=== PATIENT | male | born 1970 | race Caucasian/White ===

== ENCOUNTER 2016-12-25 05:21 | Day surgery (SDC) | payer MEDICAID ==
[2016-12-24 09:24] LABS: MCH 32.5 pg (26.0-34.0); MCHC 34.1 g/dL (31.0-37.0); MCV 95.2 fL (80.0-100.0); MEAN PLATELET VOLUME 10.4 fL (7.4-10.4); RBC 4.62 10x6/uL (4.20-6.10); RDW 12.4 % (11.5-14.5); WBC 12.7 10x3/uL (4.8-10.8)
[~2016-12-25] VITALS: Ht 185.4 cm; Wt 103.0 kg
[~2016-12-25 05:21] MED LIST: ASPIRIN325 MG PO; CLARITIN 10 MG10 MG PO; LISINOPRIL5 MG PO; MULTIPLE VITAMI1 TA1 PO
[2016-12-25 07:56] VITALS: BP 141/87; Ht 185.4 cm; Wt 103.0 kg
[2016-12-25] MEDS ORDERED: HYDROCODONE-APA1 TAB PO (11:02)
--- NOTE | 2016-12-25 14:49 | OP ---
PATIENT NAME: MIRACLE SCHMIDT MEDICAL RECORD: [id number] :70 LOCATION:D[facility] ADMISSION DATE: SURGEON: ZACH GOLD MD DATE OF OPERATION: 12/25/2016 SURGEON: Zach Gold MD. PREOPERATIVE DIAGNOSES: 1. Bilateral inguinal hernia without obstruction. 2. Alcohol dependence. 3. Nicotine dependence. 4. Chronic pancreatitis. 5. Hypertension. POSTOPERATIVE DIAGNOSES: 1. Bilateral inguinal hernia without obstruction. 2. Alcohol dependence. 3. Nicotine dependence. 4. Chronic pancreatitis. 5. Hypertension. PROCEDURE PERFORMED: Laparoscopic bilateral inguinal hernia repair. ANESTHESIA: General. COMPLICATIONS: None. SPECIMENS: None. Case was clean. ESTIMATED BLOOD LOSS: 20 cc. OPERATIVE COURSE: After consent was obtained, the patient was taken to the operating room and placed in the supine position on the operating table. Next, general anesthesia was given via endotracheal intubation after a timeout was taken to confirm the correct patient and procedure. The abdomen was then prepped and draped in typical sterile fashion. Ioban dressing was placed. Local anesthetic was injected just to the right of the umbilicus. Skin incision was made with a 15-blade scalpel. Dissection continued to the level of the external oblique fascia. Lidocaine was administered into the external oblique fascia. The fascia was incised with a 15-blade scalpel. The muscles were gently with a blunt Mony clamp until the posterior fascia was identified. A retractor was placed. The Spacemaker balloon was passed into the preperitoneal space and advanced to the pubic tubercle. The balloon was inflated and was left inflated for 5 minutes to ensure hemostasis. The balloon was removed. The preperitoneal space was inflated with CO2. Camera was inserted under direct laparoscopic vision, 2 additional 5-mm trocars were placed through the abdominal wall under direct laparoscopic vision into the preperitoneal space after administration of local anesthetic. The patient had 2 large indirect inguinal hernias. The left side was performed first. The peritoneum was bluntly dissected with a combination of electrocautery and blunt dissection until inferiorly. The left indirect inguinal hernia was reduced. Dissection continued until all vessels were identified. Peritoneum was bluntly dissected until the vas was noted to be running medially, the vessels were OPERATIVE REPORT [id number] MIRACLE SCHMIDT running laterally. There was no direct component. This was again repeated on the right side. Again, there is a very large hernia sac that was bluntly dissected as well as a combination of electrocautery until the hernia sac was completely reduced into the preperitoneal space. The hernia sac was dissected inferiorly until again the vas was noted to be running medially, both vessels running laterally. At this time, the preperitoneal space was copiously irrigated and suctioned. The pubic tubercles were bluntly dissected. A left-sided and right-sided Bard 3DMax mesh were placed in the preperitoneal space. They were secured to the pubic tubercles medially. Tacks were placed into the rectus muscle in the anterior midline as well. There was a single tack placed on the lateral edge of each mesh. This was done to confirm that the mesh would cover both the indirect and direct spaces. At this time, Paris powder was applied into the preperitoneal space. The 5-mm trocar were removed. The preperitoneal space was desufflated and the Spacemaker trocar was removed. The external oblique fascia was closed with an 0 Vicryl suture using 2 interrupted [id number]. Skin incisions were then closed with 4-0 Monocryl, Mastisol and Steri-Strips. At the end of the case, all needle and instrument counts were correct. No complications occurred. The patient was extubated and transferred to the PACU in stable condition. TRANSINT:[id number] Voice Confirmation ID: [id number] DOCUMENT ID: [id number] ZACH GOLD MD at 1449 CC: [id number] DICTATION DATE: 12/25/16 1106 DONOR SERVICES SPECIALIST: 12/25/16 1242 [facility] [address] [id number]
== END 2016-12-25 13:40 | disposition home or self-care (01) ==
LOC: D.OPS 05:21 → D.PAN 09:10 → D.OPS 09:15 → D.PAN 09:15 → D.OPS 09:30 → D.PAN 09:30 → D.OPS 13:40
PROVIDERS: Anesthesiology
DX: K40.20 Bilateral inguinal hernia, without obstruction or gangrene, not specified as recurrent (principal); F10.20 Alcohol dependence, uncomplicated; F17.200 Nicotine dependence, unspecified, uncomplicated; K86.1 Other chronic pancreatitis; I10 Essential (primary) hypertension

== ENCOUNTER → 2017-06-26 09:25 | Outpatient (CLI) | payer MEDICAID ==
[~2017-06-26 09:25] MED LIST changes: +ANUSOL-HC25 MG RC; +BUSPAR10 MG PO; +CARAFATE1 G PO; +CELEBREX200 MG PO; +CELEXA20 MG PO; +CYCLOBENZAPRINE10 MG PO; +HYDROCODONE-APA1 TAB PO; +KEPPRA500 MG PO; +NORVASC5 MG PO; +PROVENTIL HFA6.7 GM INH; +SPIRIVA18 MCG INH; +TOPAMAX50 MG PO; +VITAMIN D250000 UNIT PO
--- NOTE | 2017-06-28 06:53 | EEG ---
PATIENT:MIRACLE SCHMIDT DATE OF SERVICE: 06/26/17 MEDICAL RECORD: [id number] DATE OF : 70 LOCATION: [facility] ADMISSION DATE: 06/26/17 REFERRING PHYSICIAN: INTERPRETING PHYSICIAN: JACK SCHAEFFER MD DATE OF SERVICE: 06/26/2017 REFERRED BY: Dr. Mak as an outpatient. ELECTROENCEPHALOGRAM NUMBER: [id number]. DATE OF EXAMINATION: 06/26/2017 at 10:10 a.m. TECHNICAL DATA: This electroencephalographic recording consists of approximately 20 minutes of data collection utilizing the international 10/20 system of electrode placement and both referential and non-referential montages. Sixteen channels of electrocerebral recording are accompanied by a 17th channel dedicated to the electrocardiographic rhythm and 2 channels of electromyographic recording. Recording is performed in the awake and drowsy states utilizing activation by photic stimulation. ELECTROENCEPHALOGRAPHIC DATA: The awake state comprises approximately 70% of the recorded electrocerebral activity. Electromyographic artifact is prominent and rapid eye movements are seen. The posterior dominant background consists of a symmetric, semi-rhythmic, waxing and waning 8-9 Hz alpha activity, which is suppressed by eye opening. The drowsy state comprises approximately 30% of the recorded electrocerebral activity. Electromyographic artifact is diminished and rapid eye movements are not seen. The posterior dominant background is relatively suppressed. No abnormal or focal slowing is identified. Rare sharp waves with a minor after-going slow component are seen in the left temporal region, maximal on the scalp recording at T3 and T5. Photic stimulation induces no abnormal change in the recorded electrocerebral activity. INTERPRETATION: Sharp waves, focal, left temporal (awake and drowsy). This electroencephalographic recording is indicative of an epileptogenic focus of left temporal origin, maximal on the scalp recording at T3 and T5. TRANSINT:[id number] Voice Confirmation ID: [id number] DOCUMENT ID: [id number] JACK SCHAEFFER MD at 0653 CC: [id number] DICTATION DATE: 06/27/17 0709 SITE WORKER: 06/27/17 1335 DEP CLI 06/26/17 [id number] [place] [address]
== END | disposition home or self-care (01) ==
LOC: D.CN 06-23 10:00 → D.RT 06-23 10:00 → D.CN 06-23 11:00
DX: J44.9 Chronic obstructive pulmonary disease, unspecified (principal)

== ENCOUNTER 2017-09-01 06:31 | Day surgery (SDC) | payer MEDICAID ==
[~2017-09-01] VITALS: Ht 182.9 cm; Wt 100.0 kg
--- NOTE | ~2017-09-01 | OP ---
PATIENT NAME: MIRACLE SCHMIDT MEDICAL RECORD: [id number] :70 LOCATION:[facility] ADMISSION DATE: SURGEON: NAY BLANTON DO DATE OF OPERATION: 09/01/2017 PROCEDURE: Colonoscopy with endoscopic mucosal resection. INDICATIONS FOR PROCEDURE: Hematochezia. SCOPE: Olympus video pediatric colonoscope. MEDICATIONS: Propofol 850 mg IV and Versed 2 mg IV per anesthesia. WITHDRAWAL TIME: 30 minutes. ESTIMATED BLOOD LOSS: Minimal. COMPLICATIONS: None. FINDINGS: Informed consent was given. The patient was made comfortable with the above medication. After reaching an adequate level of sedation by slow IV push, the patient was placed on his left side. A digital rectal examination was performed and was normal. The endoscope was then advanced under direct visualization through the rectum to the cecum with visualization of the appendiceal orifice and ileocecal valve. The endoscope was slowly withdrawn as the mucosa was carefully examined. The prep quality was poor and significantly limited visualization of the cecum, ascending colon, and transverse colon, with areas that were difficult to visualize in the descending and sigmoid colon. There were 2 polyps visualized on today's examination. The first was located in the transverse colon. It was a flat polyp measuring approximately 1 cm in size. It was removed using endoscopic mucosal resection technique with an injection of approximately 10 mL of normal saline submucosally, followed by a snare cautery polypectomy in 1 piece. Two endoclips were placed over the site for tissue apposition. The second polyp was located in the distal descending colon. It was a mixed flat and sessile polyp with a focus on one side of the polyp that appeared to be more advanced than the rest of the polyp. The polyp itself measured approximately 8 mm in diameter. It was also removed using EMR technique with injection of normal saline under the base of the polyp to lift it off from the wall. This was followed by a single snare cautery polypectomy in 1 piece. Both polyps were completely removed. Retroflexion was performed in the rectum with visualization of grade II internal hemorrhoids, which were bleeding on contacts. The endoscope was withdrawn from the patient. The patient tolerated the procedure well and there were no complications. IMPRESSION: 1. Two polyps as described above removed using EMR technique. Two endoclips were placed in the transverse colon for tissue apposition. 2. Grade II internal hemorrhoids, which were bleeding on contact. 3. Poor prep limiting visualization of multiple areas within the colon. PLAN AND RECOMMENDATIONS: 1. Discharge home when recovery parameters are met. 2. High fiber diet. 3. Continue current medications. 4. Anusol suppositories 1 per rectum b.i.d. times 14 days. OPERATIVE REPORT [id number] BRAYANGRAZYNAMIRACLE 5. Repeat colonoscopy within 1 year for further colorectal cancer screening in light of the poor prep and advanced polyps on today's examination. I do recommend that the patient be scheduled in the afternoon so that he could have a split prep. TRANSINT:[id number] Voice Confirmation ID: [id number] DOCUMENT ID: [id number] NAY BLANTON DO at 1616 CC: [id number] DICTATION DATE: 09/01/17919 OCULARIST: 09/01/17 1140 [facility] 09/01/17 [facility] [address] [place] [address]
[~2017-09-01 06:31] MED LIST changes: -ANUSOL-HC25 MG RC; -BUSPAR10 MG PO; -CARAFATE1 G PO; -CELEBREX200 MG PO; -CELEXA20 MG PO; -CYCLOBENZAPRINE10 MG PO; -KEPPRA500 MG PO; -NORVASC5 MG PO; -PROVENTIL HFA6.7 GM INH; -SPIRIVA18 MCG INH; -TOPAMAX50 MG PO; -VITAMIN D250000 UNIT PO
[2017-09-01] MEDS ORDERED: TOPAMAX50 MG PO (07:22)
[2017-09-01] MEDS ORDERED: NORVASC5 MG PO (07:22)
[2017-09-01] MEDS ORDERED: CELEXA20 MG PO (07:23)
[2017-09-01] MEDS ORDERED: CYCLOBENZAPRINE10 MG PO (07:23)
[2017-09-01] MEDS ORDERED: KEPPRA500 MG PO (07:24)
[2017-09-01] MEDS ORDERED: BUSPAR10 MG PO (07:24)
[2017-09-01] MEDS ORDERED: CELEBREX200 MG PO (07:24)
[2017-09-01] MEDS ORDERED: PROVENTIL HFA6.7 GM INH (07:25)
[2017-09-01] MEDS ORDERED: SPIRIVA18 MCG INH (07:25)
[2017-09-01] MEDS ORDERED: VITAMIN D250000 UNIT PO (07:26)
[2017-09-01] MEDS ORDERED: CARAFATE1 G PO (07:26)
[2017-09-01 07:36] VITALS: BP 114/74; Ht 182.9 cm; Wt 100.0 kg
[2017-09-01 07:38] LABS: BASOPHILS 0.6 % (0-2); EOSINOPHILS 12.5 % (0-7); HEMATOCRIT 40.4 % (42.0-54.0); HEMOGLOBIN 13.8 g/dL (13.5-17.5); IMMATURE GRANULOCYTES 0.4 % (0-5); LYMPHOCYTES 38.4 % (15-50); MCH 33.5 pg (26.0-34.0); MCHC 34.2 g/dL (31.0-37.0); MCV 98.1 fL (80.0-100.0); MEAN PLATELET VOLUME 9.1 fL (7.4-10.4); MONOCYTES 12.2 % (2-11); NEUTROPHILS 35.9 % (40-80); RBC 4.12 10x6/uL (4.20-6.10); RDW 12.8 % (11.5-14.5); WBC 5.4 10x3/uL (4.8-10.8)
[2017-09-01 07:43] LABS: CALC OSMOLALITY 279 mosm/kg (275-300); CARBON DIOXIDE 22.7 mmol/L (21.0-32.0); CHLORIDE - SERUM 108 mmol/L (98-107); CREATININE - SERUM 0.9 mg/dL (0.6-1.3); GLUCOSE 95 mg/dL (74-106); SODIUM 141 mmol/L (136-145); UREA NITROGEN 11 mg/dL (7-18); eGFR NON AFRICAN AMERICAN > 90 mL/min (90-120)
[2017-09-01 07:46] LABS: PLATELET COUNT 161 10x3/uL (130-400)
[2017-09-01] MEDS ORDERED: ANUSOL-HC25 MG RC (09:34)
== END 2017-09-01 10:20 | disposition home or self-care (01) ==
LOC: D.OPS 06:31
PROVIDERS: Anesthesiology
DX: K63.5 Polyp of colon (principal); K64.1 Second degree hemorrhoids; Z01.812 Encounter for preprocedural laboratory examination

== ENCOUNTER 2017-10-13 07:12 | Day surgery (SDC) | payer MEDICAID ==
--- NOTE | ~2017-10-13 | OP ---
PATIENT NAME: MIRACLE SCHMIDT MEDICAL RECORD: [id number] :70 LOCATION:D[facility] ADMISSION DATE: SURGEON: NAY BLANTON DO DATE OF OPERATION: 10/13/2017 PROCEDURE: EGD with balloon dilation less than 30 mm and an esophageal stricture. SCOPE: Olympus video gastroscope. MEDICATIONS: Propofol 500 mg IV per anesthesia. ESTIMATED BLOOD LOSS: Minimal. COMPLICATIONS: None. FINDINGS: Informed consent was given. The patient was made comfortable with the above medication. After reaching an adequate level of sedation by slow IV push, the patient was placed on his left side. The endoscope was then advanced under direct visualization through the mouth to the second portion of the duodenum. The upper, middle, and lower thirds of the esophagus appeared normal. At the GE junction, there was evidence of LA class B reflux-induced esophagitis. There was also an esophageal stricture at this site. After the rest of the procedure was performed, a balloon dilation up to 18 mm was performed at this site with a small mucosal tear noted indicating a successful dilation. The endoscope was advanced beyond the GE junction into the stomach and retroflexed to view the cardia where a medium-sized hiatal hernia was present. The entire stomach exhibited some erythema and granularity consistent with possible gastritis. Random biopsies were taken to submit for histology and to rule out the presence of H pylori. The endoscope was advanced beyond the pylorus into the duodenum where there was some erythema and granularity as well. As the endoscope was advanced into the second portion of duodenum, there was some flattening of the villi. A few cold forceps biopsies were taken to submit for histology. The endoscope was then withdrawn from the patient. The patient tolerated the procedure well and there were no complications. IMPRESSION: 1. LA class B reflux-induced esophagitis. 2. Esophageal stricture at the GE junction, dilated to 18 mm. 3. Medium sized hiatal hernia. 4. Possible gastritis and possible duodenitis with biopsies pending. PLAN AND RECOMMENDATIONS: 1. Discharge home when recovery parameters are met. 2. GERD diet and reflux precautions. 3. Continue current medications. 4. Protonix or equivalent medication 40 mg dosing for 8 weeks. 5. Follow up biopsy specimen results. 6. Further recommendations pending biopsy results. TRANSINT:[id number] Voice Confirmation ID: [id number] DOCUMENT ID: [id number] OPERATIVE REPORT [id number] HERRMANN NATHAN A DO at 0852 CC: [id number] DICTATION DATE: 10/13/17 1004 SLUDGE CONTROL ATTENDANT: 10/13/17 1143 [facility] 10/13/17 [facility] [address] [place] [address]
[~2017-10-13 07:12] MED LIST changes: +ANUSOL-HC25 MG RC; +BUSPAR10 MG PO; +CARAFATE1 G PO; +CELEBREX200 MG PO; +CELEXA20 MG PO; +CYCLOBENZAPRINE10 MG PO; +KEPPRA500 MG PO; +NORVASC5 MG PO; +PROVENTIL HFA6.7 GM INH; +SPIRIVA18 MCG INH; +TOPAMAX50 MG PO; +VITAMIN D250000 UNIT PO
[2017-10-13 07:52] LABS: HEMATOCRIT 43.5 % (42.0-54.0); MCH 33.4 pg (26.0-34.0); MCHC 34.5 g/dL (31.0-37.0); MCV 96.9 fL (80.0-100.0); MEAN PLATELET VOLUME 9.2 fL (7.4-10.4); RBC 4.49 10x6/uL (4.20-6.10); RDW 13.1 % (11.5-14.5); WBC 7.5 10x3/uL (4.8-10.8)
[2017-10-13 08:37] VITALS: BP 133/81; BMI 30.6
== END 2017-10-13 10:50 | disposition home or self-care (01) ==
LOC: D.OPS 07:12
PROVIDERS: Anesthesiology
DX: K21.0 Gastro-esophageal reflux disease with esophagitis (principal); K22.2 Esophageal obstruction; K44.9 Diaphragmatic hernia without obstruction or gangrene; I10 Essential (primary) hypertension; J44.9 Chronic obstructive pulmonary disease, unspecified; Z01.812 Encounter for preprocedural laboratory examination

== ENCOUNTER 2020-03-10 00:56 | Inpatient (IN) | payer MEDICAID ==
[2020-03-10] VITALS (27 sets, daily range): BP systolic 87–149; BP diastolic 55–107; Ht 182.9 cm; Wt 108.5 kg
[~2020-03-10] VITALS: Ht 182.9 cm; Wt 108.5 kg
--- NOTE | 2020-03-10 01:10 | NUR ---
BLOOD AND PROTONIX INFUSING AT THE TIME OF ARRIVAL.
[2020-03-10 01:51] LABS: HEMATOCRIT 25.8 % (42.0-54.0); HEMOGLOBIN 8.6 g/dL (13.5-17.5)
--- NOTE | 2020-03-10 02:57 | NUR ---
BLOOD INFUSION COMPLETE.
[2020-03-10 04:07] LABS: HEMOGLOBIN 8.8 g/dL (13.5-17.5)
[2020-03-10 06:54] LABS: HEMATOCRIT 24.9 % (42.0-54.0); HEMOGLOBIN 8.3 g/dL (13.5-17.5)
--- NOTE | 2020-03-10 07:10 | NUR ---
PATIENT IS LYING IN BED,WITHOUT DISTRESS.VSS.ASSESSMENT PER FLOW SHEET. CONSENTS FOR BLOOD AND EGD ORDERED.PATIENT DENIES NEEDS.MONITOR
--- NOTE | 2020-03-10 08:34 | NUR ---
REMAINS WITHOUT NEEDS.AWAKENS INT.CALL LIGHT IN REACH
--- NOTE | 2020-03-10 09:05 | NUR ---
UNIT 1 OF 2 PRBC'S INITIATED. PATIENT IS WITHOUT SIGNS OF REACTIONS. REMAINS NPO FOR EGD.
--- NOTE | 2020-03-10 09:54 | NUR ---
REMAINS WITHOUT SIGNS OF DISTRESS.
--- NOTE | 2020-03-10 11:06 | NUR ---
TOLERATING BLOOD,REMAINS WITHOUT SIGNS OF REACTION. UNIT 1 OF 2 PRBC'S ALMOST COMPLETE
--- NOTE | 2020-03-10 11:30 | NUR ---
UNIT 1 OF 2 PRBC'S COMPLETE.
--- NOTE | 2020-03-10 11:47 | NUR ---
UNIT 2 OF 2 PRBC'S INNITIATED. PATIENT WITHOUT REACTIONS
--- NOTE | 2020-03-10 13:24 | NUR ---
still tolerating blood infusing,without reactions. premeds as ordered.
--- NOTE | 2020-03-10 14:42 | NUR ---
EGD IN PROGRESS.
[2020-03-10] MEDS ORDERED: GABAPENTIN300 MG PO (15:08)
[2020-03-10] MEDS ORDERED: MOBIC7.5 MG PO (15:09)
[2020-03-10] MEDS ORDERED: CLARITIN 10 MG10 MG PO (15:12)
[2020-03-10] MEDS ORDERED: LIPITOR80 MG PO (15:12)
[2020-03-10] MEDS ORDERED: SINGULAIR10 MG PO (15:14)
[2020-03-10] MEDS ORDERED: SYMBICORT 16010.2 GM INH (15:15)
[2020-03-10] MEDS ORDERED: COMBIVENT RESPIM4 GM INH (15:15)
[2020-03-10] MEDS ORDERED: SPIRIVA18 MCG INH (15:16)
--- NOTE | 2020-03-10 15:28 | NUR ---
PATIENT TOLERATED EGD WITH DISTRESS. FLD STARTED.MEDS REVIEWED PER MED REC,.SOME MEDS ADDED THAT WERE NOT ON LIST.MEDS REMOVED FROM PATIENT ROOM.
--- NOTE | 2020-03-10 15:46 | NUR ---
PATIENT IS DEMANDING MEDICATIONS HE TAKESS AT HOME. CALL NAYANAO PRASHANTH BARKER [facility] FOR MEDS.SHE IS LOOKING AT MED REC LIST.
--- NOTE | 2020-03-10 17:19 | NUR ---
MEDS ORDERED PER MAR. PATIENT SEEMS LESS ANXIOUS. MONITOR
[2020-03-10 18:20] LABS: HEMATOCRIT 27.9 % (42.0-54.0); HEMOGLOBIN 9.3 g/dL (13.5-17.5)
--- NOTE | 2020-03-10 18:24 | NUR ---
PAIN MEDS ORDERED PER MAR FOR PAIN "ALL OVER". STATES HE HURTS ALL THE TIME AT HOME.02/17 .
--- NOTE | 2020-03-10 18:38 | NUR ---
REMAINS WITHOUT SIGNS OF BLEEDING,NO STOOLS,NO EMESIS. TOLERATING FULL LIQUID DIET. CONT PLAN OF CARE
--- NOTE | 2020-03-10 20:07 | NUR ---
1900 REPORT RECEIVED. nO S/S OF BLEEDING OR COMPLICATIONS. WILL CONTINUE TO MONITOR
--- NOTE | 2020-03-10 21:00 | NUR ---
PT. ABLE TO TAKE PO MEDS WITH NO COMPLICATIONS. STOOD UP WITH STAND BY ASSIST, A LITTLE UNSTEADY ON HIS FEET. WILL CONT. TO MONITOR
--- NOTE | 2020-03-10 23:04 | NUR ---
resting in bed. no changes at this time
[2020-03-11] VITALS: BP 111/68; BP 93/80
[2020-03-11 01:00] VITALS: BP 108/67
[2020-03-11 02:00] VITALS: BP 151/98
--- NOTE | 2020-03-11 02:30 | NUR ---
0100 no changes, no complaints at this time
[2020-03-11 03:00] VITALS: BP 184/93
--- NOTE | 2020-03-11 03:06 | NUR ---
PT. RESTING IN BED WITH EYES CLOSED.
[2020-03-11 03:52] LABS: BASOPHILS 0.5 % (0-2); EOSINOPHILS 6.9 % (0-7); HEMATOCRIT 31.4 % (42.0-54.0); HEMOGLOBIN 10.3 g/dL (13.5-17.5); IMMATURE GRANULOCYTES 0.4 % (0-5); LYMPHOCYTES 35.7 % (15-50); MCH 30.7 pg (26.0-34.0); MCHC 32.8 g/dL (31.0-37.0); MCV 93.7 fL (80.0-100.0); MONOCYTES 11.6 % (2-11); NEUTROPHILS 44.9 % (40-80); RBC 3.35 10x6/uL (4.20-6.10); RDW 16.6 % (11.5-14.5); WBC 8.4 10x3/uL (4.8-10.8)
[2020-03-11 04:00] VITALS: BP 177/90
[2020-03-11 04:01] LABS: PLATELET COUNT 111 10x3/uL (130-400)
[2020-03-11 04:14] LABS: INR 0.92 (0.85-1.17); PROTIME 12.3 SECONDS (11.6-15.0)
[2020-03-11 04:18] LABS: ALBUMIN 2.4 g/dL (3.4-5.0); ANION GAP 6.1 mmol/L (8-16); BILIRUBIN - TOTAL 1.96 mg/dL (0.2-1.3); CALCIUM 8.4 mg/dL (8.5-10.1); CARBON DIOXIDE 29.1 mmol/L (21.0-32.0); CREATININE - SERUM 1.2 mg/dL (0.6-1.3); MAGNESIUM - SERUM 2.8 mg/dL (1.8-2.4); PHOSPHOROUS 3.6 mg/dL (2.5-4.9); POTASSIUM - SERUM 4.2 mmol/L (3.5-5.1); PROTEIN - SERUM 6.3 g/dL (6.4-8.2)
--- NOTE | 2020-03-11 05:11 | NUR ---
Pt. in bed with O2 mask on resting quietly. no concerns at this time
--- NOTE | 2020-03-11 05:47 | NUR ---
0430 PT REFUSING TO WEAR bp CUFF, EXPLAINED TO PT RISKS AND BENEFIT OF HAVING ACCURATE BLOOD PRESSURES. PT. CONTINUES TO REFUSE. AT THIS TIME BP CUFF IS OFF PER PT. REQUEST
[2020-03-11 07:00] VITALS: BP 119/79
--- NOTE | 2020-03-11 10:15 | NUR ---
OK TO MOVE OUT TO ICU.
[2020-03-11] MEDS ORDERED: PROTONIX40 MG PO (11:52)
== END 2020-03-11 12:30 | disposition home or self-care (01) | DRG 378 ==
LOC: D.ER 00:56 → D.ICU 01:29
PROVIDERS: Family Medicine; Internal Medicine Gastroenterology; ADMIT Emergency Medicine; ATTEND Emergency Medicine
PROC: 0DJ08ZZ Inspection of Upper Intestinal Tract, Via Natural or Artificial Opening Endoscopic (ICD-10-PCS; principal; 2020-03-10 14:26)
DX: K92.2 Gastrointestinal hemorrhage, unspecified (principal); K76.6 Portal hypertension; F10.20 Alcohol dependence, uncomplicated; I10 Essential (primary) hypertension; E78.5 Hyperlipidemia, unspecified; J44.9 Chronic obstructive pulmonary disease, unspecified; J45.909 Unspecified asthma, uncomplicated; K21.9 Gastro-esophageal reflux disease without esophagitis; F12.10 Cannabis abuse, uncomplicated; K31.89 Other diseases of stomach and duodenum; D64.9 Anemia, unspecified

== ENCOUNTER 2020-04-04 07:44 | Inpatient (IN) | payer MEDICAID ==
[~2020-04-04] VITALS: Ht 182.9 cm; Wt 113.6 kg
[2020-04-04] VITALS (26 sets, daily range): BP systolic 72–136; BP diastolic 32–106; BMI 30.2
[~2020-04-04 07:44] MED LIST changes: +COMBIVENT RESPIM4 GM INH; +GABAPENTIN300 MG PO; +LIPITOR80 MG PO; +MOBIC7.5 MG PO; +PROTONIX40 MG PO; +SINGULAIR10 MG PO; +SYMBICORT 16010.2 GM INH
[2020-04-04 08:38] LABS: BASOPHILS 0.1 % (0-2); EOSINOPHILS 0.3 % (0-7); IMMATURE GRANULOCYTES 0.3 % (0-5); LYMPHOCYTES 25.2 % (15-50); MCH 30.8 pg (26.0-34.0); MCHC 31.8 g/dL (31.0-37.0); MCV 96.9 fL (80.0-100.0); MEAN PLATELET VOLUME 10.2 fL (7.4-10.4); MONOCYTES 8.1 % (2-11); RBC 2.27 10x6/uL (4.20-6.10); RDW 17.8 % (11.5-14.5); WBC 7.8 10x3/uL (4.8-10.8)
[2020-04-04 08:45] LABS: INR 1.54 (0.85-1.17); PROTIME 18.4 SECONDS (11.6-15.0)
[2020-04-04 08:46] LABS: ANION GAP 9.9 mmol/L (8-16); CALCIUM 7.1 mg/dL (8.5-10.1); CARBON DIOXIDE 27.7 mmol/L (21.0-32.0); CREATININE - SERUM 1.9 mg/dL (0.6-1.3); POTASSIUM - SERUM 5.6 mmol/L (3.5-5.1)
[2020-04-04 08:53] LABS: ALBUMIN 1.7 g/dL (3.4-5.0); BILIRUBIN - TOTAL 3.51 mg/dL (0.2-1.3); PROTEIN - SERUM 4.1 g/dL (6.4-8.2)
[2020-04-04 08:55] LABS: PLATELET COUNT 148 10x3/uL (130-400)
--- NOTE | 2020-04-04 14:00 | NUR ---
PATIENT RECIEVED FROM ER VIA STRETCHER. PATIENT ALERT AND ORIENTED X 4, C/O VOMITING BLOOD SINCE OCTOBER AND WAS IN HOSPITAL IN FEBRUARY FOR SAME, STATES HAD EROSIVE ESOPHAGITIS. STATES DRINKS APPROXIMATELY A 6 PACK PER DAY AND LAST DRINK WAS THREE DAYS AGO. DIZZY UPON CHANGING POSITIONS. ASSISTED TO BATHROOM AND HAS BM WITH DARK BLACK STOOL FORMED. IV 20 GA TO LEFT AC NS AND IV 22 GA TO LEFT WRIST WITH NS AT 75 ML/HR AND PROTONIX AT 8 MG/HR (10 ML/HR). BBS - WITH EXPIRATORY WHEEZE NOTED, 100% ON RA. HEAD TO TOE ASSESSMENT COMPLETED.
--- NOTE | 2020-04-04 14:50 | NUR ---
DR. CASTAÑEDA AT ROOM UPDATED AND EXAMINES PATIENT. ORDERS ATIVAN 1 MG Q6H PRN NEEDED FOR ANXIETY/WITHDRAWAL SYMPTOMS.
[2020-04-04 15:15] LABS: HEMATOCRIT 27.4 % (42.0-54.0)
--- NOTE | 2020-04-04 17:58 | NUR ---
PATIENT BECOMING CONFUSED, REFUSING TO USE CALL LIGHT AND GETTING UP OUT OF BED, PULLED RIGHT AC IV OUT, REORIENTED TO LOCATION AND SITUATION AND PLACED BACK IN BED. BED ALARM ON.
--- NOTE | 2020-04-04 18:10 | NUR ---
SPOKE TO DR. CASTAÑEDA REGARDING PATEINTS BP SYSTOLIC IN THE 80S AND INCREASED CONFUSION. ORDERS LACTIC ACID AND 1 L BOLUS OF NS.
--- NOTE | 2020-04-04 18:31 | NUR ---
ATTEMPTED TO RESTART A SECOND IV WITH NO SUCCESS TO LEFT AC.
--- NOTE | 2020-04-04 18:46 | NUR ---
PATIENT WITH BLOODY STOOL, CLEANED AND BACK TO BED. EXTREMELY UNSTEADY ON FEET AND NOT LISTENING TO INSTRUCTIONS ATTEMPTS TO SIT ON TRASH CAN COMMODE. BACK TO BED.
--- NOTE | 2020-04-04 18:48 | NUR ---
LAB AT ROOM TO DRAW LACTIC ACID AND H AND H.
[2020-04-04 19:17] LABS: HEMATOCRIT 19.3 % (42.0-54.0); HEMOGLOBIN 6.3 g/dL (13.5-17.5)
[2020-04-04 23:19] LABS: HEMATOCRIT 18.7 % (42.0-54.0); HEMOGLOBIN 6.2 g/dL (13.5-17.5)
[2020-04-04 23:22] LABS: ANION GAP 13.8 mmol/L (8-16); POTASSIUM - SERUM 4.8 mmol/L (3.5-5.1)
[2020-04-04 23:23] LABS: CALCIUM 6.9 mg/dL (8.5-10.1)
[2020-04-05] VITALS (78 sets, daily range): BP systolic 75–130; BP diastolic 23–473; BMI 30.1
[2020-04-05 05:57] LABS: BASOPHILS 0.1 % (0-2); EOSINOPHILS 0.1 % (0-7); IMMATURE GRANULOCYTES 0.2 % (0-5); LYMPHOCYTES 23.5 % (15-50); MCH 29.4 pg (26.0-34.0); MCHC 33.8 g/dL (31.0-37.0); MEAN PLATELET VOLUME 10.3 fL (7.4-10.4); MONOCYTES 6.1 % (2-11); RDW 15.3 % (11.5-14.5)
[2020-04-05 06:06] LABS: HEMATOCRIT 27.5 % (42.0-54.0); HEMOGLOBIN 9.3 g/dL (13.5-17.5); PLATELET COUNT 78 10x3/uL (130-400); RBC 3.16 10x6/uL (4.20-6.10); WBC 17.3 10x3/uL (4.8-10.8)
[2020-04-05 06:40] LABS: INR 1.6 (0.85-1.17); PROTIME 18.9 SECONDS (11.6-15.0)
[2020-04-05 06:53] LABS: PLATELET ESTIMATE DECREASED
[2020-04-05 07:24] LABS: ALBUMIN 1.4 g/dL (3.4-5.0); ALKALINE PHOSPHATASE 179 U/L (30-120); ALT (SGPT) 77 U/L (10-68); AMYLASE - SERUM 26 U/L (25-115); BILIRUBIN - TOTAL 4.05 mg/dL (0.2-1.3); CALC OSMOLALITY 284 mosm/kg (275-300); CARBON DIOXIDE 20.3 mmol/L (21.0-32.0); CHLORIDE - SERUM 104 mmol/L (98-107); CKMB 52.2 U/L (0.0-3.6); CREATININE - SERUM 3.4 mg/dL (0.6-1.3); FERRITIN 642 ng/mL (3-244); GLUCOSE 166 mg/dL (74-106); LIPASE 66 U/L (73-393); PHOSPHOROUS 4.1 mg/dL (2.5-4.9); POTASSIUM - SERUM 5.5 mmol/L (3.5-5.1); PROTEIN - SERUM 3.2 g/dL (6.4-8.2); SODIUM 132 mmol/L (136-145); T4 THYROXIN - FREE 1.05 ng/dL (0.76-1.46); THYROID STIMULATING HORMONE 0.35 uIU/mL (0.36-3.74); TROPONIN-I 0.045 ng/mL (0.000-0.060); UREA NITROGEN 57 mg/dL (7-18); eGFR NON AFRICAN AMERICAN 20 mL/min (90-120)
[2020-04-05 07:28] LABS: CREATINE KINASE 3945 UL (21-232); MAGNESIUM - SERUM 1.9 mg/dL (1.8-2.4)
[2020-04-05 07:29] LABS: CALCIUM 6.8 mg/dL (8.5-10.1)
--- NOTE | 2020-04-05 07:30 | NUR ---
EGD COMPLETED PER DR. BLANTON. PATIENT AWAKE, CONFUSED.NEEDS CONSTANT REMINDER TO KEEP OXYGEN ON AND NOT GETTING UP OUT OF BED AT THIS TIME. IV RIGHT WRIST NS KVO. LEFT WRIST 22 GAUGE INFUSING WITH PROTONXI AT 8 MG HOUR, SANDDO STATIN, LEVOPHED AT 5 MCG. NS AT 75 ML HOUR. HEAD OF BED ELEVATED 30 DEGREES.
--- NOTE | 2020-04-05 08:30 | NUR ---
PATIENT CONSTANTLY WANTING TO GET UP TO BATHROOM. UP ON BSC AFTER HAVING DARK RED STOOL IN BED. NO BM ON BSC OR URINE. DID BECOME DIZZY FROM GETTING UP PULSE OX 88% 2 LITERS NC APPLIED. STATES ABD TENDER ON PALPATATION
[2020-04-05 08:31] LABS: TOTAL IRON BIND CAPACITY 131 ug/dl (260-445)
[2020-04-05 08:33] LABS: % SATURATION 96 % (15-55); IRON 127 ug/dl (35-150); UNSAT IRON BIND CAPACITY 4 ug/dl (150-375)
--- NOTE | 2020-04-05 09:49 | NUR ---
RESTLESS PLACED ON BEDPAN NO RESULTS. NEEDS CONTANT REORIENTATION. ASK EACH TIME IF DONE WITH SURGERY. INFORMED DONE WITH SCOPE. RESTLESS TURNING BACK AND FORTH IN BED STATES HE "FEELS BAD". ATIVAN 1 MG IV GIVEN. STATES HE ONLY DRINKS A "FEW BEERS A DAY".
--- NOTE | 2020-04-05 11:00 | NUR ---
BILATERAL LUNG SOUNDS LESS WHEEZING NOTED, STILL WHEEZING. GOOD COUGH UNPRODUCTIVE. TURNS SELF FROM SIDE TO SIDE. DENIES PAIN. IV RIGHT WRIST AND LEFT WRIST WITHOUT REDNESS OR SWELLING. RESTING WELL AFTER ATIVAN.
[2020-04-05 12:04] LABS: HEMATOCRIT 26.3 % (42.0-54.0); HEMOGLOBIN 8.9 g/dL (13.5-17.5)
--- NOTE | 2020-04-05 13:00 | NUR ---
UP TO BSC, LARGE DARK RED STOOL. PATIENT STATES HE VOIDED WITH STOOL. RETURNED TO BED BLOOD PRESSURE DROPPED TO 79/41. INCREASED LEVOPHED TO 8 MCG/MIN. PATIENT RETURNS TO SLEEP WHEN IN BED. RESTING WELL NO DISTRESS. NO RESTLESSNESS. FAMILY CALLING UPDATE GIVEN. PHONE IN ROOM FOR PATIENT TO TALK WITH FAMILY. PATIENT CELL PHONE IN ROOM , CELL PHONE IS CHARGED.
--- NOTE | 2020-04-05 13:48 | NUR ---
PHARMACY CALLED ABOUT BICARB GTT.
[2020-04-05 17:03] LABS: HEMATOCRIT 23.8 % (42.0-54.0); HEMOGLOBIN 8.3 g/dL (13.5-17.5)
--- NOTE | 2020-04-05 17:49 | NUR ---
DR. BLANTON CALLED UPDATE GIVEN ORDERS RECEIVED TO TRANSFUSE WITH 2 UNITS OF BLOOD, DUE TO NEED FOR LEVOPHED TO KEEP SBP GREATER THAN 90.
[2020-04-06] VITALS (88 sets, daily range): BP systolic 72–125; BP diastolic 34–85
[2020-04-06 00:59] LABS: HEMOGLOBIN 9.3 g/dL (13.5-17.5)
[2020-04-06 07:15] LABS: HEMATOCRIT 26.5 % (42.0-54.0); HEMOGLOBIN 8.9 g/dL (13.5-17.5); MCH 28.5 pg (26.0-34.0); MCHC 33.6 g/dL (31.0-37.0); MCV 84.9 fL (80.0-100.0); MEAN PLATELET VOLUME 10.6 fL (7.4-10.4); PLATELET COUNT 73 10x3/uL (130-400); RBC 3.12 10x6/uL (4.20-6.10); RDW 16.4 % (11.5-14.5); WBC 20.8 10x3/uL (4.8-10.8)
[2020-04-06 07:16] LABS: INR 1.17 (0.85-1.17); PROTIME 14.8 SECONDS (11.6-15.0)
[2020-04-06 07:34] LABS: ALBUMIN 1.5 g/dL (3.4-5.0); ALKALINE PHOSPHATASE 165 U/L (30-120); ALT (SGPT) 95 U/L (10-68); BILIRUBIN - TOTAL 2.35 mg/dL (0.2-1.3); CALC OSMOLALITY 287 mosm/kg (275-300); CARBON DIOXIDE 23.9 mmol/L (21.0-32.0); CHLORIDE - SERUM 102 mmol/L (98-107); GLUCOSE 153 mg/dL (74-106); PHOSPHOROUS 4.3 mg/dL (2.5-4.9); PROTEIN - SERUM 3.4 g/dL (6.4-8.2); SODIUM 132 mmol/L (136-145); UREA NITROGEN 69 mg/dL (7-18)
[2020-04-06 07:35] LABS: CREATINE KINASE 1795 UL (21-232); CREATININE - SERUM 4.4 mg/dL (0.6-1.3); MAGNESIUM - SERUM 2.4 mg/dL (1.8-2.4); eGFR NON AFRICAN AMERICAN 15 mL/min (90-120)
--- NOTE | 2020-04-06 07:35 | NUR ---
RECEIVED BEDSIDE REPORT ON PATIENT AND ASSUMED CARE. PATIENT RESTING QUIETLY, EYES CLOSED, VSS, EASILY AROUSED BY VOICE. ALERT AND ORIENTED. CM - SR RATE 88, BBS - EXPIRATORY WHEEZES NOTED, SPO2 96% ON RA. IV 20 GA TO RIGHT WRIST INFUSING KEPPRA AT 400 ML/HR, IV 22 GA TO LEFT WRIST INFUSING BICARB AT 75 ML/HR, AND 20 GA TO LEFT FA INFUSING PROTONIX AT 8 MG/HR (10 ML/HR) AND SANDOSTATIN AT 50 MCG/HR ( 10 ML/HR). HEAD TO TO ASSESMENT COMPLETED.
[2020-04-06 07:36] LABS: CKMB 32.7 U/L (0.0-3.6)
[2020-04-06 08:12] LABS: LYMPHOCYTES 13 % (15-50); NEUTROPHILS 84 % (40-80); PLATELET ESTIMATE DECREASED
--- NOTE | 2020-04-06 09:01 | NUR ---
PATIENT RESTING QUIETLY, VSS. NO NEEDS AT THIS TIME.
--- NOTE | 2020-04-06 11:00 | NUR ---
ASSISTED PATIENT TO BATHROOM, UNSTEADY GAIT, BLOODY STOOL NOTED. MINIMAL UOP 50 CC DARK, CONCENTRATED. CLEANED AND LINENS CHANGED. ASSISTED BACK TO BED. REASSESSMENT COMPLETED.
[2020-04-06 11:34] LABS: HEMATOCRIT 25.8 % (42.0-54.0)
--- NOTE | 2020-04-06 11:45 | NUR ---
UNIT 08/11 PLATELET STARTED TO INFUSE AT 1145. VSS.
--- NOTE | 2020-04-06 12:15 | NUR ---
PLATELET TRANSFUSION COMPLETED. TOLERATED WELL, NO S/S OF TRANSFUSION REACTION. VSS.
--- NOTE | 2020-04-06 13:15 | NUR ---
LEVOPHED STARTED BP 84/34 AT 5 MCG/MIN.
--- NOTE | 2020-04-06 13:35 | NUR ---
LEVOPHED INCREASED TO 7.5 MCG/MIN BP 77/47.
--- NOTE | 2020-04-06 14:31 | NUR ---
PATIENT VOIDES 350 ML OF DARK CONCENTRATED TEA COLORED UOP. GIVEN COMPLETE CHG BATH AND LINENS CHANGED. ASSISTED IN REPOSITIONING IN BED.
--- NOTE | 2020-04-06 14:53 | NUR ---
DR. CASTAÑEDA AT ROOM UPDATED AND EXAMINES PATIENT. CXR, TROPONIN, AND ECHO ORDERED. REASSESSMENT COMPLETED. VSS.
[2020-04-06 16:31] LABS: HEMATOCRIT 25.5 % (42.0-54.0); HEMOGLOBIN 8.7 g/dL (13.5-17.5)
--- NOTE | 2020-04-06 17:43 | NUR ---
FLARER PAGED TWICE BY HOT STRIP MILL INSPECTOR, WITH NO CALL BACK, FLARER PAGED TWO MORE TIMES WITH NO CALL BACK AND WELDING EQUIPMENT REPAIRER SUPERVISOR NOTIFIED AND WORKING ON NOTIFIYING FLARER.
--- NOTE | 2020-04-06 17:58 | NUR ---
2ND BRANCH SPECIALIST ATTEMPTS TO GET BLOOD CULTURES BUT UNABLE TO DRAW.
--- NOTE | 2020-04-06 18:14 | NUR ---
PATIENT VOIDS 300 ML TO URINAL.
[2020-04-06 20:21] LABS: HEMATOCRIT 24.3 % (42.0-54.0); HEMOGLOBIN 8.3 g/dL (13.5-17.5)
[2020-04-07] VITALS (56 sets, daily range): BP systolic 86–137; BP diastolic 48–72; Ht 182.9 cm; Wt 113.6 kg
[2020-04-07 08:30] LABS: ALBUMIN 1.7 g/dL (3.4-5.0); ANION GAP 8.5 mmol/L (8-16); BILIRUBIN - TOTAL 2.07 mg/dL (0.2-1.3); CARBON DIOXIDE 25.6 mmol/L (21.0-32.0); CREATININE - SERUM 2.2 mg/dL (0.6-1.3); MAGNESIUM - SERUM 2.7 mg/dL (1.8-2.4); PHOSPHOROUS 2.8 mg/dL (2.5-4.9); POTASSIUM - SERUM 4.1 mmol/L (3.5-5.1)
--- NOTE | 2020-04-07 09:05 | NUR ---
VOICE HERE. VASCULAR ACCESS NURSE CALLED. LEFT MESSAGE. AWAITING CALL BACK.
--- NOTE | 2020-04-07 09:39 | NUR ---
Nutrition Follow-up: NPO this AM for EGD. Per chart, ate ~75% of dinner last night. Has been on clear liquids/NPO since admit (x 3 days). Wt: 256# (04/06) Labs noted: Na 132, Ca 7.0, Mg 2.7, Alb 1.7 Meds noted: Carafate, Protonix, banana bag @ 125, electrolyte protocol -Rec ADAT as medically feasible; if pt must remain NPO/on clear liquids, rec consider nutrition support. -Monitor wt. -RD following.
[2020-04-07 10:24] LABS: HEMOGLOBIN 8.6 g/dL (13.5-17.5); LYMPHOCYTES 14.9 % (15-50); MCH 30.1 pg (26.0-34.0); MCHC 34.4 g/dL (31.0-37.0); MEAN PLATELET VOLUME 10.6 fL (7.4-10.4); NEUTROPHILS 77.9 % (40-80); PLATELET COUNT 77 10x3/uL (130-400); RBC 2.86 10x6/uL (4.20-6.10); RDW 17.2 % (11.5-14.5); WBC 17.3 10x3/uL (4.8-10.8)
[2020-04-07 10:52] LABS: MCV 87.4 fL (80.0-100.0)
[2020-04-07 12:30] LABS: HEMATOCRIT 24.8 % (42.0-54.0); HEMOGLOBIN 8.4 g/dL (13.5-17.5)
--- NOTE | 2020-04-07 16:10 | NUR ---
UGI COMPLETE BY DR MOREAU, ANESTHESIA BY DR WAN. PT FAMILIA WELL.
--- NOTE | 2020-04-07 19:10 | NUR ---
RECIVED BEDSIDE SHIFT REPORT. PT IS RESTING IN BED A&OX2, CONFUSED TO PLACE. HE SAYS"IM AT [facility]". TOLD IN REPORT THAT HE HAS BEEN EASILY FORGETFUL AT TIMES THROUGHOUT THE DAY. HIS VSS. HE VOICES"IM ALL GOOD". HAS NO C/O OF PAIN OR NEEDS AT THIS TIME. WILL PERFORM FULL ASSESSMENT AND DOC IN [facility]. OREINTED HIM TO USE OF CALL LIGHT AND HE VOICES"OK". BED IS LOW,SIDE RIALSX2,CALL LIGHT WIHTIN REACH. BED ALARM IS ON
[2020-04-07 20:19] LABS: HEMATOCRIT 24.4 % (42.0-54.0); HEMOGLOBIN 8.2 g/dL (13.5-17.5)
--- NOTE | 2020-04-07 20:55 | MORECARE ---
CASE MANAGEMENT DISCHARGE SUMMARY PATIENT: MIRACLE SCHMIDT UNIT: [id number] ADM DATE: 04/04/20 AGE: 49 : 70 SEX: M [facility] AUTHOR: LEANN WAHTLEY PHYSICIAN: REFERRING PHYSICIAN: YOLANAD CASTAÑEDA MD DATE OF SERVICE: 04/07/20 Discharge Plan Patient Name: MIRACLE SCHMIDT [facility] [facility] 1970 Planned Disposition: Home Anticipated Discharge Date: Discharge Date: Expected LOS: Initial Reviewer: [email or web address] Initial Review Date: 04/04/2020 Generated: 04/07/20 9:54 pm Patient Name: MIRACLE SCHMIDT Page [phone] at 2054 All edits/amendments must be made on the electronic document DICTATION DATE: 04/07/202053 FEDERAL APPELLATE CLERK: KVNG 04/07/202053 RPT#: [id number] DC DATE: STATUS: ADM IN [facility] [address] [place] [address] END OF REPORT
--- NOTE | 2020-04-07 21:02 | MORECARE ---
CASE MANAGEMENT DISCHARGE SUMMARY PATIENT: MIRACLE SCHMIDT UNIT: [id number] ADM DATE: 04/04/20 AGE: 49 : 70 SEX: M ROOM/BED: D[facility] AUTHOR: LEANN WHATLEY PHYSICIAN: REFERRING PHYSICIAN: YOLANDA CASTAÑEDA MD DATE OF SERVICE: 04/07/20 Discharge Plan Patient Name: MIRACLE SCHMIDT [facility] [facility] 1970 Planned Disposition: Home Anticipated Discharge Date: Discharge Date: Expected LOS: Initial Reviewer: [email or web address] Initial Review Date: 04/04/2020 Generated: 04/07/20 10:01 pm DCPIA - Discharge Planning Initial Assessment Updated by [email or web address]: Nathaly West on 04/07/20 8:56 pm * Is the patient Alert and Oriented? Yes * How many steps to enter\exit or inside your home? * PCP SISI DARLING * Pharmacy [facility] * Preadmission Environment Home Alone * ADLs Independent * Equipment None * List name and contact numbers for known caregivers / representatives who currently or will assist patient after discharge: PRANAY BENNETT -[phone] * Verbal permission to speak to the caregivers and representatives has been obtained from the patient. Yes * Community resources currently utilized None * Additional services required to return to the preadmission environment? No * Can the patient safely return to the preadmission environment? Yes * Has this patient been hospitalized within the prior 30 days at any hospital? Yes Last DP export: 04/07/20 7:55 p Patient Name: MIRACLE SCHMIDT Page [id number] at 2102 All edits/amendments must be made on the electronic document DICTATION DATE: 04/07/202100 PROJECT PLANNER: KVNG 04/07/202100 RPT#: [id number] DC DATE: STATUS: ADM IN [facility] [address] [place] [address] END OF REPORT
--- NOTE | 2020-04-07 21:09 | MORECARE ---
CASE MANAGEMENT DISCHARGE SUMMARY PATIENT: MIRACLE SCHMIDT UNIT: [id number] ADM DATE: 04/04/20 AGE: 49 : 70 SEX: M ROOM/BED: D.CV02 AUTHOR: PHYLICIA,DOC PHYSICIAN: REFERRING PHYSICIAN: YOLANDA CASTAÑEDA MD DATE OF SERVICE: 04/07/20 Discharge Plan Patient Name: MIRACLE SCHMIDT Facility: [facility]:[place] : 1970 Planned Disposition: Home Anticipated Discharge Date: Discharge Date: Expected LOS: Initial Reviewer: [email or web address] Initial Review Date: 04/04/2020 Generated: 04/07/20 10:08 pm Comments DCP- Discharge Planning Updated by [email or web address]: Nathaly West on 04/07/20 8:[address] Patient Name: MIRACLE SCHMIDT Admission Status: ER Accout number: [id number] Admission Date: 04-04-2020 : 1970 Admission Diagnosis:ACUTE GASTRITIS WITH BLEEDING Attending: YOLANDA CASTAÑEDA Current LOS: 3 Anticipated DC Date: Planned Disposition: Home Primary Insurance: MEDICAID [place] Discharge Planning Comments: CM met with patient to complete initial dc planning assessment. CM educated patient on the CM role and verbal consent given by patient to complete assessment. Patient lives at home ALONE. Patient is independent. At discharge patient plans to return home and feels this is a safe discharge. CM discussed availability of home health, rehab services, and medical equipment. Patient will have family to transport home. Patient denied known discharge needs at this time. CM will continue to follow and will assist as needed with dc plans/needs. Plate Put In Worker: Nathaly West DCPIA - Discharge Planning Initial Assessment Updated by [email or web address]: Nathaly West on 04/07/20 8:56 pm * Is the patient Alert and Oriented? Yes * How many steps to enter\exit or inside your home? * PCP SISI DARLING * Pharmacy [facility] * Preadmission Environment Home Alone * ADLs Independent * Equipment None * List name and contact numbers for known caregivers / representatives who currently or will assist patient after discharge: PRANAY BENNETT -[phone] * Verbal permission to speak to the caregivers and representatives has been obtained from the patient. Yes * Community resources currently utilized None * Additional services required to return to the preadmission environment? No * Can the patient safely return to the preadmission environment? Yes * Has this patient been hospitalized within the prior 30 days at any hospital? Yes Last DP export: 04/07/20 8:02 p Patient Name: MIRACLE SCHMIDT Page [id number] at 2109 All edits/amendments must be made on the electronic document DICTATION DATE: 04/07/202107 COMPUTER SECURITY SPECIALIST: KVNG 04/07/202107 RPT#: [id number] DC DATE: STATUS: ADM IN [facility] [address] [place] [address] END OF REPORT
--- NOTE | 2020-04-07 21:41 | NUR ---
ASSISTED PT TO BR BY STAND BY ASSIST. HE IS SLIGHTLY UNSTABLE ON FEET AND SHAKEY. HE VOIDED LARGE AMOUNT OF DARK YELLOW URINE. ASSISTED BACK TO BED SAFELY. VSS. NO NEED OR C/O VOICED. HE SAID "THANK YOU". BED IS LOW,SIDE RIALSX2,CALL LIGHT WIHTIN REACH. BED ALARM IS ON
[2020-04-08] VITALS (24 sets, daily range): BP systolic 97–145; BP diastolic 46–79
--- NOTE | 2020-04-08 01:40 | NUR ---
OBSERVED PT GETTING OUT OF BED. UPON ARRIVIG INTO ROOM PT VOICES"I JUST NEED TO GO TO THE BATHROOM". I ASSIST HIM TO BATHROOM. ONCE AGAIN HE IS UNSTABLE ON HIS FEET WITH UNSTEADY BALANCE. HE VOIDED LARGE AMOUNT OF DARK YELLOW URINE AND I ASSISTED HIM SAFELY BACH TO BED. HE HAD SCANT MAROON COLOR STOOL SMEARS ON DRAWSHEET BUT DID NOT HAVE BM. CHANGED DRAWSHEET AND WILL CONTINUE TO MONITOR. VSS. ONCE BACK TO BED I PROVIDED HIM WITH A CHG BATH AND CHANGED BOTH LEFT IV DRESSINGS AT THIS TIME DUE TO WEEPING OF BILAT ARMS AND WET DRESSINGS. HE VOICED"MAN I FEEL LIKE I NEED A PROZAC". I ASKED HIM IF HE ANXIOUS AND HE VOICED"YES". WILL ADMINISTER ANTIVAN ORDERED PRN. BED IS LOW,SIDE RAISLX2,CALLLIGHT WITHIN REACH. BED ALARM IS ON
--- NOTE | 2020-04-08 03:03 | NUR ---
PT BED ALARM WAS GOING OFF IN ROOM, UPON ARRING HE IS STANDING UP BESIDE BED AND SAYS"IM JUST GOING TO THE BR". I ASK "DID YOU FORGET TO USE YOUR CALL LIGHT? AND HE SAID"O YEA, IM SORRY". HE IS NOW CONFUSED TO TIME/PLACE. SAFLY ASSISTED TO BR AND BACK TO BED. VSS. REORIENTED HIM TO USE OF CALL LIGHT AGAIN AND HE VOICED"OK, ILL TRY TO REMMBER". BED IS LEFT LOW,SIDE RIALSX2,CALLLIGHT WITHIN REACH. BED ALARM ON
[2020-04-08 04:01] LABS: BASOPHILS 0.4 % (0-2); EOSINOPHILS 4.6 % (0-7); HEMATOCRIT 23.7 % (42.0-54.0); HEMOGLOBIN 7.7 g/dL (13.5-17.5); IMMATURE GRANULOCYTES 0.5 % (0-5); LYMPHOCYTES 22.6 % (15-50); MCH 28.8 pg (26.0-34.0); MCHC 32.5 g/dL (31.0-37.0); MCV 88.8 fL (80.0-100.0); MEAN PLATELET VOLUME 10.6 fL (7.4-10.4); MONOCYTES 12.5 % (2-11); NEUTROPHILS 59.4 % (40-80); RBC 2.67 10x6/uL (4.20-6.10); RDW 16.6 % (11.5-14.5)
[2020-04-08 04:25] LABS: PLATELET COUNT 110 10x3/uL (130-400)
[2020-04-08 04:49] LABS: ALBUMIN 1.6 g/dL (3.4-5.0); ANION GAP 8.6 mmol/L (8-16); BILIRUBIN - TOTAL 2.35 mg/dL (0.2-1.3); CALCIUM 7.7 mg/dL (8.5-10.1); CARBON DIOXIDE 28.2 mmol/L (21.0-32.0); CREATININE - SERUM 1.4 mg/dL (0.6-1.3); MAGNESIUM - SERUM 2.8 mg/dL (1.8-2.4); PHOSPHOROUS 2.2 mg/dL (2.5-4.9); POTASSIUM - SERUM 3.8 mmol/L (3.5-5.1); PROTEIN - SERUM 4.2 g/dL (6.4-8.2)
--- NOTE | 2020-04-08 08:14 | NUR ---
PT FAMILIA CL.
[2020-04-08 09:49] LABS: BILIRUBIN NEGATIVE (NEGATIVE); KETONE NEGATIVE (NEGATIVE); NITRITE NEGATIVE (NEGATIVE); UROBILINOGEN NORMAL (NORMAL)
[2020-04-08 09:52] LABS: UDS - AMPHET NEGATIVE QUAL (NEGATIVE); UDS - BARB NEGATIVE QUAL (NEGATIVE); UDS - BENZO NEGATIVE QUAL (NEGATIVE); UDS - COCAINE NEGATIVE QUAL (NEGATIVE); UDS - OPIATE POSITIVE QUAL (NEGATIVE); UDS - PCP NEGATIVE QUAL (NEGATIVE); UDS - THC POSITIVE QUAL (NEGATIVE)
--- NOTE | 2020-04-08 10:26 | NUR ---
1 UPRBC'S STARTED ORDERED. VOICE HERE. OK TO TRANSFER TO FLOOR IF OK WITH PCP.
--- NOTE | 2020-04-08 13:29 | NUR ---
PT ASST TO BATHROOM. MAROON STOOL NOTED.
--- NOTE | 2020-04-08 14:55 | NUR ---
MEDS FOUND IN PTS ROOM. RX SENT TO PHARMACY.
--- NOTE | 2020-04-08 17:41 | NUR ---
PT CONTINUES TO GET OOB AND SETTING BED ALARM OFF AND IS NOT USING CALL LIGHT. INSTRUCTED PT TO USE CALL LIGHT AGAIN.
[2020-04-08 19:00] LABS: HEMATOCRIT 26.4 % (42.0-54.0); HEMOGLOBIN 8.7 g/dL (13.5-17.5)
--- NOTE | 2020-04-08 19:10 | NUR ---
RECIVED BEDSIDE SHIFT RERPOT. PT IS A&OX2 DISORIENTED TO PLACE/SITUATION. AFTER INFORMING HIM HE VOICES"O YEA I KNEW THAT". WHILE IN ROOM HE VOICED"I NEED TO GO TO THE BATHROOM. HE VOIDES AND PASS SCANT AMOUNT OF DARK RED BLOOD CLOTS AND PASSES LARGE AMOUNT OF GAS. BACK TO BED SAFLY. HE VERBALIZES "ILL TELL YOU WHAT THOUGH, IM MADE THAT THEY TAKE MY MEDICINE AWAY AND THEN WONT GIVE ME ALL THAT I TAKE AT HOME". I WENT OVER PT MEDICINES THAT HE TAKES AT HOME AND THE ONES HE TAKES AT THIS PRESENT TIME. I VERBALIZED TO PT THAT I WOULD CALL THE DOCTOR TO SEE IF WE COULD HAVE HIS HOME MEDICATIONS RESTARTED THAT ARE NOT ON MAR NOW. HE VERBALIZED"I WOULD APPRECIATE THAT". VSS. STILL NOTE 2+EDEMA IN UPPER BILATERAL EXTREMITES WITH SCANT AMOUTN OF WEEPING. WILL PERFORM FULL ASSESSMENT AND DOC IN FLOWSHEET. ORIENTED HIM IN HOW TO USE CALL LIGHT AND TO PUSH THE RED BUTTON BEFORE HE GETS UP. HE VOICED"OK, I WILL". BED IS LOW,SIDE RIALSX2,CALL LIGTH WITHIN REACH. BED ALARM IS ON
--- NOTE | 2020-04-08 19:46 | NUR ---
TALKED WITH Sergey DICKERSON APN AND UPDATED PT STATUS AND HIS REQUEST TO RESUME HOME MEDICATIONS. SHE AGREEDED. T.O TO RESTART GABAPENTIN 300MG TID, MELATONIN 6MG AT BEDTIME, AND CELEXA 20MG ONCE DAILY. T.O READ BACK CORRECT.
--- NOTE | 2020-04-08 22:22 | NUR ---
ASSISTED PT TO BR AFTER SEEING HIM TRYING TO GET OUT OF BED WITHOUT USING HIS CALLLIGHT. HIS BALANCE HAS IMPROVED BUT IS STILL UNSTABLE SLIGHTLY. HE URINATED AND PASSED ABOUT 4 KARTHIK SIZED BLOOD BLOODS FROM TRYING TO DEFICATE. HE HAS RELEASED LAREGE AMOUNTS OF GAS. BACK TO BED SAFELY. BED ALARM IS ON. BED IS LOW,SIDE RAISLX2,CALL LIGHT WITHIN REACH. WILL CONTINUE TO MONITOR
[2020-04-09] VITALS (21 sets, daily range): BP systolic 108–153; BP diastolic 62–88
--- NOTE | 2020-04-09 03:00 | NUR ---
PT IS FINALLY RESTING FOR AWHILE WITHOUT RESTLESSNESS.VSS. BED IS LOW,SIDE RAILSX2,CALLLIGHT WITHIN REACH. BED ALARM IS ON
--- NOTE | 2020-04-09 09:33 | NUR ---
PT AWAKE AND INSTEAD OF USING CALL LIGHT GETS OOB ALL TANGLED UP AND ATTEMPTS TO WALK. CONFUSED TO SITUATION. AGGITATED. ATIVAN GIVEN WITH RESOLVE OF AGGITATION. C/O PAIN ALL OVER. MS GIVEN.
[2020-04-09 10:23] LABS: BASOPHILS 0.5 % (0-2); EOSINOPHILS 6.9 % (0-7); HEMATOCRIT 27.8 % (42.0-54.0); HEMOGLOBIN 9.2 g/dL (13.5-17.5); IMMATURE GRANULOCYTES 1.6 % (0-5); LYMPHOCYTES 19.8 % (15-50); MCH 29.6 pg (26.0-34.0); MCHC 33.1 g/dL (31.0-37.0); MCV 89.4 fL (80.0-100.0); MEAN PLATELET VOLUME 9.7 fL (7.4-10.4); MONOCYTES 15.4 % (2-11); NEUTROPHILS 55.8 % (40-80); PLATELET COUNT 131 10x3/uL (130-400); RBC 3.11 10x6/uL (4.20-6.10); RDW 16.5 % (11.5-14.5)
[2020-04-09 10:51] LABS: ALBUMIN 1.7 g/dL (3.4-5.0); ANION GAP 6.2 mmol/L (8-16); BILIRUBIN - TOTAL 1.69 mg/dL (0.2-1.3); CALCIUM 7.8 mg/dL (8.5-10.1); CARBON DIOXIDE 29.5 mmol/L (21.0-32.0); CREATININE - SERUM 1.2 mg/dL (0.6-1.3); MAGNESIUM - SERUM 2.1 mg/dL (1.8-2.4); PHOSPHOROUS 2.3 mg/dL (2.5-4.9); POTASSIUM - SERUM 3.7 mmol/L (3.5-5.1); PROTEIN - SERUM 4.8 g/dL (6.4-8.2)
--- NOTE | 2020-04-09 14:38 | NUR ---
IV LEAKING. REPORTED TO MICHEAL MASON. REC'D ORDERS TO DC IV MEDS AND START PO MEDS.
[2020-04-09 18:27] LABS: HEMATOCRIT 28.4 % (42.0-54.0); HEMOGLOBIN 9.5 g/dL (13.5-17.5)
[2020-04-10] VITALS (10 sets, daily range): BP systolic 119–154; BP diastolic 59–99
[2020-04-10 04:45] LABS: BASOPHILS 0.7 % (0-2); EOSINOPHILS 6.1 % (0-7); HEMATOCRIT 26.2 % (42.0-54.0); HEMOGLOBIN 8.4 g/dL (13.5-17.5); IMMATURE GRANULOCYTES 6.1 % (0-5); LYMPHOCYTES 23.3 % (15-50); MCH 28.7 pg (26.0-34.0); MCHC 32.1 g/dL (31.0-37.0); MCV 89.4 fL (80.0-100.0); MEAN PLATELET VOLUME 9.5 fL (7.4-10.4); MONOCYTES 15.8 % (2-11); PLATELET COUNT 145 10x3/uL (130-400); RBC 2.93 10x6/uL (4.20-6.10); RDW 16.9 % (11.5-14.5); WBC 11.6 10x3/uL (4.8-10.8)
--- NOTE | 2020-04-10 09:44 | NUR ---
Nutrition Follow-up: Tolerating regular diet. Diet: Regular PO intake: 100% x 6 meals Wt: 250# (04/08) Labs noted (04/09): Glu 145, Ca 7.8, PO4 2.3, Alb 1.7 Meds noted: Protonix, Carafate, electrolyte protocol -Monitor wt. -RD following.
--- NOTE | 2020-04-10 14:00 | NUR ---
INSTRUCT TO PATIENT CASEMANAGEMENT CAN HELP FIND IN PATIENT FOR ALCOHOL. PT REFUSED TO DO INPATIENT STATES I CAN FIND OUTPATIENT MY OWN. [employer] THERE ARE MEETINGS.
--- NOTE | 2020-04-10 15:19 | NUR ---
F/U MADE WITH DR MOREAU FOR AT 0900.
--- NOTE | 2020-04-10 15:30 | NUR ---
DISCHARGE INSTRUCTIONS GIVEN. VOICES NO QUESTION AT TIME. INSTRUCT TO MAKE APPT WITH LUIZA SCHWARTZ.
--- NOTE | 2020-04-10 15:31 | NUR ---
LEFT VIA WC.
--- NOTE | 2020-04-10 16:58 | MORECARE ---
CASE MANAGEMENT DISCHARGE SUMMARY PATIENT: MIRACLE SCHMIDT UNIT: [id number] ADM DATE: 04/04/20 AGE: 49 : 70 SEX: M ROOM/BED: D.02 AUTHOR: PHYLICIA,DOC PHYSICIAN: REFERRING PHYSICIAN: YOLANDA CASTAÑEDA MD DATE OF SERVICE: 04/10/20 Discharge Plan Patient Name: MIRACLE SCHMIDT Facility: [facility]:[place] : 1970 Planned Disposition: Home Anticipated Discharge Date: Discharge Date: 04/10/2020 Expected LOS: Initial Reviewer: [email or web address] Initial Review Date: 04/04/2020 Generated: 04/10/20 5:58 pm DCP- Discharge Planning Updated by [email or web address]: Nathaly West on 04/07/20 8:[address] Patient Name: MIRACLE SCHMIDT Admission Status: ER Accout number: [id number] Admission Date: 04-04-2020 : 1970 Admission Diagnosis:ACUTE GASTRITIS WITH BLEEDING Attending: YOLANDA CASTAÑEDA Current LOS: 3 Anticipated DC Date: Planned Disposition: Home Primary Insurance: MEDICAID [place] Discharge Planning Comments: CM met with patient to complete initial dc planning assessment. CM educated patient on the CM role and verbal consent given by patient to complete assessment. Patient lives at home ALONE. Patient is independent. At discharge patient plans to return home and feels this is a safe discharge. CM discussed availability of home health, rehab services, and medical equipment. Patient will have family to transport home. Patient denied known discharge needs at this time. CM will continue to follow and will assist as needed with dc plans/needs. Master Ship: Nathaly West DCPIA - Discharge Planning Initial Assessment Updated by [email or web address]: Nathaly West on 04/07/20 8:56 pm * Is the patient Alert and Oriented? Yes * How many steps to enter\exit or inside your home? * PCP SISI DARLING * Pharmacy [facility] * Preadmission Environment Home Alone * ADLs Independent * Equipment None * List name and contact numbers for known caregivers / representatives who currently or will assist patient after discharge: PRANAY BENNETT -[phone] * Verbal permission to speak to the caregivers and representatives has been obtained from the patient. Yes * Community resources currently utilized None * Additional services required to return to the preadmission environment? No * Can the patient safely return to the preadmission environment? Yes * Has this patient been hospitalized within the prior 30 days at any hospital? Yes Last DP export: 04/07/20 8:09 p Patient Name: MIRACLE SCHMIDT Page 40154 at 1658 All edits/amendments must be made on the electronic document DICTATION DATE: 04/10/201657 LIVESTOCK HANDLER: KVNG 04/10/201657 RPT#: [id number] DC DATE:04/10/20 STATUS: DIS IN [place] [id number] [place] [address] END OF REPORT
== END 2020-04-10 15:31 | disposition home or self-care (01) | DRG 377 ==
LOC: D.ER 07:44 → D.CVICU 09:37 → D.EDHOLD 09:37 → D.CVICU 12:47
PROVIDERS: Family Medicine; Internal Medicine Gastroenterology; Internal Medicine Nephrology; ADMIT Family Medicine; ATTEND Family Medicine
PROC: 0W3P8ZZ Control Bleeding in Gastrointestinal Tract, Via Natural or Artificial Opening Endoscopic (ICD-10-PCS; principal; 2020-04-05 07:00)
PROC: 0DJ08ZZ Inspection of Upper Intestinal Tract, Via Natural or Artificial Opening Endoscopic (ICD-10-PCS; 2020-04-07)
DX: K29.01 Acute gastritis with bleeding (principal); N17.0 Acute kidney failure with tubular necrosis; D62 Acute posthemorrhagic anemia; E87.1 Hypo-osmolality and hyponatremia; G93.40 Encephalopathy, unspecified; M62.82 Rhabdomyolysis; K22.10 Ulcer of esophagus without bleeding; E87.5 Hyperkalemia; K21.9 Gastro-esophageal reflux disease without esophagitis; F10.10 Alcohol abuse, uncomplicated; K74.60 Unspecified cirrhosis of liver; I95.9 Hypotension, unspecified; D50.9 Iron deficiency anemia, unspecified; K44.9 Diaphragmatic hernia without obstruction or gangrene

== ENCOUNTER 2020-05-18 08:07 | Day surgery (SDC) | payer MEDICAID ==
[~2020-05-18] VITALS: Ht 185.4 cm; Wt 109.1 kg
[2020-05-18 08:37] LABS: HEMATOCRIT 38.5 % (42.0-54.0); HEMOGLOBIN 12.8 g/dL (13.5-17.5); MCH 30.9 pg (26.0-34.0); MCHC 33.2 g/dL (31.0-37.0); MEAN PLATELET VOLUME 8.5 fL (7.4-10.4); PLATELET COUNT 172 10x3/uL (130-400); RBC 4.14 10x6/uL (4.20-6.10); RDW 15.9 % (11.5-14.5)
[2020-05-18 08:43] LABS: CALC OSMOLALITY 272 mosm/kg (275-300); CALCIUM 8.7 mg/dL (8.5-10.1); CARBON DIOXIDE 29.3 mmol/L (21.0-32.0); CHLORIDE - SERUM 101 mmol/L (98-107); CREATININE - SERUM 1.1 mg/dL (0.6-1.3); GLUCOSE 112 mg/dL (74-106); POTASSIUM - SERUM 4.9 mmol/L (3.5-5.1); SODIUM 137 mmol/L (136-145); UREA NITROGEN 8 mg/dL (7-18); eGFR NON AFRICAN AMERICAN 75 mL/min (90-120)
[2020-05-18 08:44] LABS: APTT 28.9 SECONDS (22.8-39.4); INR 1.13 (0.85-1.17); PROTIME 14.5 SECONDS (11.6-15.0)
[2020-05-18] MEDS ORDERED: MOBIC7.5 MG PO (09:02)
[2020-05-18] MEDS ORDERED: COREG6.25 MG (09:05)
[2020-05-18] MEDS ORDERED: NITROQUICK0.4 MG SL (09:06)
[2020-05-18 09:28] LABS: BASOPHILS 2 % (0-2); EOSINOPHILS 22 % (0-7); LYMPHOCYTES 36 % (15-50); MONOCYTES 10 % (2-11); NEUTROPHILS 30 % (40-80); PLATELET ESTIMATE NORMAL
[2020-05-18 09:40] VITALS: Ht 185.4 cm; Wt 109.1 kg
--- NOTE | 2020-05-18 13:02 | NUR ---
1205 VOIDED 1250 IV REMOVED AND INSTRUCTIONS GIVEN. PAIN RELIEVED
== END 2020-05-18 13:12 | disposition home or self-care (01) ==
LOC: D.SP 08:07 → D.CT 10:00 → D.SP 10:00
PROVIDERS: Specialist; ATTEND Internal Medicine Gastroenterology
DX: R94.5 Abnormal results of liver function studies (principal); K76.6 Portal hypertension; K22.10 Ulcer of esophagus without bleeding; Z86.010 Personal history of colon polyps; Z80.0 Family history of malignant neoplasm of digestive organs

== ENCOUNTER → 2020-12-22 09:40 | Outpatient (CLI) | payer MEDICAID ==
[2020-05-18 09:40] VITALS: BMI 31.7
[~2020-12-22 09:40] MED LIST changes: +COREG6.25 MG; +NITROQUICK0.4 MG SL
== END | disposition home or self-care (01) ==
LOC: D.LAB 09:40
PROVIDERS: ATTEND Internal Medicine Pulmonary Disease
DX: Z11.52 Encounter for screening for COVID-19 (principal)

== ENCOUNTER → 2020-12-28 08:10 | Outpatient (CLI) | payer MEDICAID ==
[2020-05-18 09:40] VITALS: BMI 31.7
== END | disposition home or self-care (01) ==
LOC: D.LAB 08:10 → D.RT 08:30
PROVIDERS: ATTEND Internal Medicine Pulmonary Disease
DX: J44.9 Chronic obstructive pulmonary disease, unspecified (principal)

== ENCOUNTER → 2021-01-04 10:12 | Outpatient (CLI) | payer MEDICAID ==
[2020-05-18 09:40] VITALS: BMI 31.7
[2021-01-04 10:52] LABS: ALBUMIN 3.9 g/dL (3.4-5.0); BILIRUBIN - DIRECT 0.22 mg/dL (0.00-0.30); BILIRUBIN - INDIRECT 0.26 mg/dL (0.00-1.00); BILIRUBIN - TOTAL 0.48 mg/dL (0.2-1.3)
[2021-01-04 10:55] LABS: BASOPHILS 0.9 % (0-2); EOSINOPHILS 10.6 % (0-7); HEMATOCRIT 42.4 % (42.0-54.0); HEMOGLOBIN 14.1 g/dL (13.5-17.5); LYMPHOCYTES 29.1 % (15-50); MCH 30.4 pg (26.0-34.0); MCHC 33.1 g/dL (31.0-37.0); MCV 91.6 fL (80.0-100.0); MEAN PLATELET VOLUME 7.7 fL (7.4-10.4); MONOCYTES 10.2 % (2-11); NEUTROPHILS 49.2 % (40-80); PLATELET COUNT 183 10x3/uL (130-400); RBC 4.63 10x6/uL (4.20-6.10); RDW 15.5 % (11.5-14.5); WBC 5.8 10x3/uL (4.8-10.8)
[2021-01-04 11:46] LABS: INR 1.14 (0.85-1.17); PROTIME 13.6 SECONDS (11.6-15.0)
== END | disposition home or self-care (01) ==
LOC: D.US 10:12
PROVIDERS: ATTEND Internal Medicine Gastroenterology
DX: K74.60 Unspecified cirrhosis of liver (principal); R74.8 Abnormal levels of other serum enzymes